=== PATIENT | male | born 1965 | race Caucasian/White ===

== ENCOUNTER → 2023-04-09 10:09 | Outpatient (CLI) | payer OTHER, SELFPAY ==
--- NOTE | ~2023-04-09 | XR_ITS ---
EXAM: XR lumbar spine min 4V DATE: 04/09/2023 10:48 HISTORY: M54.50 - Low back pain, unspecified . COMPARISON: CT abdomen pelvis 03/22/2016. FINDINGS: 5 nonrib-bearing lumbar-type vertebral bodies. Mild lumbar scoliosis. Pedicles intact. 12 mm anterolisthesis at L5-S1. Vertebral body heights preserved. Severe disc space narrowing with vacuu m phenomenon at L5-S1. Moderate facet arthropathy at L5-S1. No fracture or traumatic malalignment. Un fused spinous process tip at L5. Atherosclerotic aortic calcifications without evident aneurysm. IMPRESSION: Severe degenerative disc disease at L5-S1 with a 12 mm (grade 1 but nearing grade 2) anterolisthesis. Reviewed, dictated and finalized at location K. GER INSTRUMENTATION IMPRESSION: Severe degenerative disc disease at L5-S1 with a 12 mm (grade 1 but nearing gra de 2) anterolisthesis.
--- NOTE | ~2023-04-09 | XR_ITS ---
EXAMINATION: XR hip LT 2V w AP pelvis DATE: 04/09/2023 10:48 INDICATION: Left hip pain. TECHNIQUE: An anteroposterior view of the pelvis and 2 views of left hip were obtained. COMPARISON: None. FINDINGS: Bone alignment is normal. No fracture. There is mild lumbar spondylosis. There is mild oste oarthritis of the hips. IMPRESSION: 1. Mild osteoarthritis of the hips. Reviewed, dictated and finalized at location E. E ARTIST
== END ==
PROVIDERS: PCP Physician Assistant; Visit Provider Physician Assistant
DX: M51.37 Other intervertebral disc degeneration, lumbosacral region (principal); M16.0 Bilateral primary osteoarthritis of hip
CPT/HCPCS: 72110; 73502

== ENCOUNTER 2023-06-20 12:35 | Outpatient (CLI) | payer OTHER, SELFPAY ==
--- NOTE | ~2023-06-20 | XR_ITS ---
EXAMINATION: XR ribs LT 2V INDICATION: Left chest pain TECHNIQUE: 3 views of the left ribs were obtained. COMPARISON: 04/25/2013 FINDINGS: No displaced rib fracture is identified. The left lung is clear. No pleural effusion or pne umothorax identified. IMPRESSION: 1. No acute cardiopulmonary abnormality or evidence of displaced rib fracture. Reviewed, dictated and finalized at location B. 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
== END 2023-06-20 12:36 ==
LOC: MICIMG 12:38
PROVIDERS: PCP Physician Assistant; Visit Provider Physician Assistant
DX: R07.81 Pleurodynia (principal)
CPT/HCPCS: 71100

== ENCOUNTER 2023-10-29 14:54 | Outpatient (CLI) | payer OTHER, SELFPAY ==
--- NOTE | ~2023-10-29 | XR_ITS ---
XR cervical spine 4-5V Ordering provider: Ivonne Santana, PAC History: . M54.2 - Cervicalgia . Comparison: None. FINDINGS: VERTEBRAL BODIES: Normal height and alignment. No visible fracture or subluxation. The dens is intact . DISK SPACES: Narrowing of the disc C3-C4, C5-C6 and C6-C7. Uncovertebral joint osteoarthritic changes at the same levels. Narrowing of the foramina at the level of C5-C6, C6-C7 and C7-T1 bilaterally. PARASPINOUS SOFT TISSUES: No prevertebral soft tissue swelling. IMPRESSION: No acute osseous abnormality cervical spine. Multilevel degenerative disc disease. Reviewed, dictated and finalized at location A.
== END 2023-10-29 14:55 ==
LOC: MICIMG 14:55
PROVIDERS: PCP Family Medicine; Visit Provider Physician Assistant
DX: M50.30 Other cervical disc degeneration, unspecified cervical region (principal)
CPT/HCPCS: 72050

== ENCOUNTER 2023-11-06 15:47 | Outpatient (CLI) | payer OTHER, SELFPAY ==
--- NOTE | ~2023-11-06 | CT_ITS ---
EXAMINATION: CT brain wo con DATE: 11/06/2023 16:06 INDICATION: Headache. Dizziness. TECHNIQUE: Computed tomography (CT) of the head was performed without intravenous contrast. The mA wa s adjusted according to patient size. Iterative reconstruction technique was employed. Exam dose: 59 9.57 mGy-cm total exam DLP. COMPARISON: 04/26/2013 MRI brain/brainstem, reported normal 04/25/2013 CT brain, reported negative FINDINGS: Bilateral carotid siphon internal carotid artery calcifications and mild bilateral vertebra l artery calcifications are noted. No intracranial mass lesion or hemorrhage or cerebrovascular accident, midline shift or mass effect i s detected. Normal ventricular size. No subdural or epidural hematoma is detected. The mastoid air cells and paranasal sinuses are well-developed and aerated. No fracture or bone destruction of the cranial vault. IMPRESSION: Cerebral atherosclerosis No other significant intracranial abnormality Reviewed, dictated and finalized at Location A. Reviewed, dictated and finalized at location J.
== END 2023-11-06 15:48 ==
PROVIDERS: PCP Family Medicine; Visit Provider Physician Assistant
DX: R51.9 Headache, unspecified (principal); I67.2 Cerebral atherosclerosis
CPT/HCPCS: 70450

== ENCOUNTER 2024-03-04 16:10 | Outpatient (CLI) | payer OTHER, SELFPAY ==
--- NOTE | ~2024-03-04 | MR_ITS ---
EXAMINATION: MR lumbar spine wo con DATE: 03/04/2024 16:36 INDICATION: Lumbar radiculopathy with chronic low back pain and bilateral hip pain, right greater mallory n left. TECHNIQUE: Magnetic resonance imaging (MRI) of the lumbar spine was performed without intravenous con trast. Sequences included sagittal T2-weighted FSE, sagittal T2-weighted FS FSE, sagittal T1-weighted FSE, and axial T2-weighted FSE. COMPARISON: None FINDINGS: Chronic L5 spondylolysis with bilateral pars interarticularis defects and 7 mm anterolisthesis L5 on S1. 10 degrees lumbar levoscoliosis. Mild likely physiologic anterior wedging at T12 and L1. Remainin g vertebral body heights are normal. Severe disc height loss with associated fibrofatty and fibrovasc ular degenerative endplate changes at L5-S1. Marrow signal is otherwise unremarkable. Remaining disc heights are normal. The conus medullaris terminates at L2. There is normal signal in the caudal spina l cord. Paravertebral soft tissues are unremarkable. The following disc levels are specifically discu ssed: T12-L1: Minimal central disc protrusion. There is mild bilateral facet joint osteoarthritis. There is no neural foraminal stenosis. There is no central canal stenosis. L1-L2: Minimal central disc protrusion. There is mild bilateral facet joint osteoarthritis. There is no neural foraminal stenosis. There is no central canal stenosis. L2-L3: Disc is mildly bulging. There is mild bilateral facet joint osteoarthritis. There is mild bila teral neural foraminal stenosis. There is minimal central canal stenosis. L3-L4: Disc is moderate bulging. There is mild bilateral facet joint osteoarthritis. There is mild bi lateral neural foraminal stenosis. There is minimal central canal stenosis. L4-L5: Mild right foraminal zone disc protrusion and minimal left paracentral disc protrusion. There is moderate bilateral facet joint osteoarthritis. There is old right and minimal left neural foramina l stenosis. There is no central canal stenosis. L5-S1: Annular fissure and broad-based disc extrusion extending from foraminal zone to foraminal zone with disc material extending up to 8 mm cephalad to the level of the inferior endplate of L5. There is moderate bilateral facet joint osteoarthritis. There is moderate right and moderate to severe left neural foraminal stenosis. There is no central canal stenosis. IMPRESSION: 1. L5 spondylolysis with bilateral pars intra-articular is defects and 8 mm anterolisthesis on S1. 2. Severe spondylosis at L5-S1 most notable for moderate right-sided and moderate to severe left-side d neural foraminal stenosis. Minimal to mild spondylosis in the more cephalad lumbar spine. Reviewed, dictated and finalized at location B. SELING PSYCHOLOGIST IMPRESSION: 1. L5 spondylolysis with bilateral pars intra-articular is defects and 8 mm ant erolisthesis on S1. 2. Severe spondylosis at L5-S1 most notable for moderate right-sided and modera te to severe left-sided neural foraminal stenosis. Minimal to mild spondylosis in the more cephalad lumbar spine.
== END 2024-03-04 16:11 | disposition home or self-care (01) ==
PROVIDERS: PCP Orthopaedic Surgery; Visit Provider Orthopaedic Surgery
DX: M47.817 Spondylosis without myelopathy or radiculopathy, lumbosacral region (principal); M89.78 Major osseous defect, other site; M43.18 Spondylolisthesis, sacral and sacrococcygeal region; M47.818 Spondylosis without myelopathy or radiculopathy, sacral and sacrococcygeal region
CPT/HCPCS: 72148

== ENCOUNTER 2024-05-05 10:48 | Outpatient (CLI) | payer OTHER, SELFPAY ==
--- NOTE | ~2024-05-05 | US_ITS ---
Abdominal Sonogram: Real-time sonographic imaging of the abdomen was performed. Clinical History: Abdominal pain Findings: The liver appears normal with no evidence of mass lesion or bile duct dilatation. Main por willis vein demonstrates normal direction of flow. The spleen is normal in size without evidence of foca l lesion. The gallbladder is well distended, and appears normal with no evidence of gallstone or wal l thickening. The common bile duct measures 5 mm. The visualized pancreas, aorta, and IVC are unrema rkable. The right kidney measures 13.3 cm in length and the left kidney measures 13.3 cm. There is no hydronephrosis or renal calculus. Left renal cyst noted. Impression: No significant abnormality. Reviewed, dictated and finalized at location . TING MACHINE OPERATOR Impression: No significant abnormality.
== END 2024-05-05 10:49 | disposition home or self-care (01) ==
LOC: MICIMG 10:54
PROVIDERS: PCP Family Medicine; Visit Provider Family Medicine
DX: R10.84 Generalized abdominal pain (principal)
CPT/HCPCS: 76700

== ENCOUNTER 2024-12-15 08:33 | Day surgery (SDC) | payer OTHER, SELFPAY ==
[2024-12-03 09:40] VITALS: BMI 43.9
--- OUTSIDE RECORDS SUMMARY | 2024-12-15 08:54 | XMS_ITS | Patient Health Record ---
Author Organization [facility] Address [address] [place], [place] [id number] Care Team Providers Care Latin Teacher Name Role Phone CED LLANOS Unavailable [phone] Ced Fonseca Unavailable Unavailable Reason For Referral No Information Medications Medication SIG (Take, Route, Frequency, Duration) Notes Start Date End Date Status amlodipine 10 MG Oral Tablet ORAL amlodipine 10 MG Oral TabletOriginal Medicationamlodipine 10 MG Oral Tablet *Reorder from [employer] for eRx and Interaction Alerts* 07/15/2016 Active aspirin 81 MG Delayed Release Oral Tablet ORAL aspirin 81 MG Delayed Release Oral TabletOriginal Medicationaspirin 81 MG Delayed Release Oral Tablet *Reorder from [employer] for eRx and Interaction Alerts* 07/15/2016 Active Famotidine 10 MG Oral Tablet ORAL famotidine 10 MG Oral TabletOriginal Medicationfamotidine 10 MG Oral Tablet *Reorder from [employer] for eRx and Interaction Alerts* 07/15/2016 Active Losartan Potassium 100 MG Oral Tablet ORAL losartan potassium 100 MG Oral TabletOriginal Medicationlosartan potassium 100 MG Oral Tablet *Reorder from [employer] for eRx and Interaction Alerts* 07/15/2016 Active Plan Of Treatment No Information Insurance Providers Payer Name Payer Address Payer Phone Subscriber Number Group Number Insured Name Patient Relationship to Insured Coverage Start Date Coverage End Date [facility] [address] [address] [place] [address] [id number] JESUS WALSH Self - patient is the insured
--- OUTSIDE RECORDS SUMMARY | 2024-12-15 08:54 | XMS_ITS | Clinical Summary ---
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 Gender Identity Not on file Sexual Orientation Not on file Plan of Treatment Health Maintenance Due Date Last Done Comments Hepatitis C Virus (HCV) Screening 1965 TdaP Immunization 1965 Hepatitis B Immunization (1 of 3 - 19+ 3-dose series) 1985 Cologuard 2011 Colonoscopy 2011 Colorectal Cancer Screening 2011 Immunochemical Fecal Occult Blood 2011 Pneumococcal Immunization (5 0+ years) (1 of 1 - PCV) 2016 Zoster Immunization (1 of 2) 2016 SARS-COV-2 Immunization ( - season) 2023 Influenza Immunization (#1) 2024 Respiratory Syncytial Virus (RSV) Immunization (Adult) (1 - 1-dose 75+ series) 2041 Human Papillomavirus (HPV) Immunization Aged Out No longer eligible b ased on patient's age to complete this topic Meningococcal Immunization (ACWY) Aged Out No longer eligible based on patient's age to complete this topic Rotavirus Immunization Aged Out No lo nger eligible based on patient's age to complete this topic
[2024-12-15 08:55] VITALS: BP 139/69; PULSE 58; RESP 16; TEMP 36.7; O2SAT 97; BMI 43.4
[2024-12-15] MEDS: LACTATED RINGERS 1,000 ML 150 ML IV CONT (09:16)
[2024-12-15] MEDS: SIMETHICONE ORAL SUSPENSION 20 MG/0.3 ML 30 ML BOTTLE 1.8 ML PO (09:17)
--- NOTE | 2024-12-15 10:11 | PM.IMHP ---
H&P: HPI History of Present Illness Date/Time: 12/15/24 10:11 Chief Complaint: GERD Narrative: the patient suffers from longstanding heartburn and occasional regurgitation. He denies dysphagia, hematemesis or melena. He never had an EGD and is referred for it today. Review of Systems Review of Systems: All systems reviewed & are unremarkable except as noted in HPI and below PMFSH Past Medical History Medical History Spondylolisthesis at L5-S1 level Generalized anxiety disorder Benign prostatic hyperplasia with lower urinary tract symptoms Obstructive sleep apnea Degenerative disc disease GERD (gastroesophageal reflux disease) Tinnitus HTN (hypertension) Surgical History Surgical History History of sinus surgery 02/04/2023 Family History Family History Father Acute myocardial infarction Diabetes mellitus Heart disease Congestive heart failure Mother Colon cancer Social History Social History Smoking status: Never smoker Alcohol intake: current Alcohol use details: rarely Substance use: never Substance use type: does not use Do You Feel Safe in your Home?: Yes Lack of Transportation: No Lack of Food: Never True Current Housing: I Have Housing Concerned About Future Housing: No Difficulty Paying Gas/Electric Bills: No Difficulty Paying for Meds: No Currently Unemployed: No Education: Master's Degree or Higher Difficulty w/ Childcare or Family Care: No Living arrangements: alone Occupation/Education: occupation Gender identity (if verbalized by the patient): Male Sexual Orientation (if Verbalized by the Patient): Straight or Heterosexual Spiritual care concerns: No Meds Home Medications and Allergies Home Medications ?Medication ?Instructions ?Recorded ?Confirmed ?Type tamsulosin 0.4 mg capsule 0.4 mg PO DAILY 03/02/24 12/15/24 History irbesartan 300 1 tablet PO DAILY #90 tabs 08/17/24 12/15/24 Rx mg-hydrochlorothiazide 12.5 mg tablet diltiazem HCl 180 mg See Rx Instructions .Route 10/13/24 12/15/24 Rx capsule,extended release 24 hr, .COMPLEX #90 caps controlled (DILT-XR) escitalopram oxalate 10 mg tablet 10 mg PO DAILY #90 tabs 11/19/24 12/15/24 Rx aspirin 325 mg tablet 325 mg PO EVERY OTHER DAY 12/03/24 12/15/24 History cetirizine 10 mg capsule (All Day 10 mg PO DAILY PRN allergic 12/03/24 12/03/24 History Allergy (cetirizine)) symptoms cholecalciferol (vitamin D3) 125 125 mcg PO DAILY 12/03/24 12/15/24 History mcg (5,000 unit) tablet (Vitamin D3) magnesium 200 mg tablet 200 mg PO DAILY 12/03/24 12/15/24 History ildbbmji-mhk-hzidx acid 200 1 tablet PO DAILY 12/03/24 12/15/24 History mcg-vit K1 60 mcg-lycopene 600 mcg tablet (Men's Multivitamin) vitamin K2 180 mcg capsule 180 mcg PO DAILY 12/03/24 12/15/24 History Allergies Allergy/AdvReac Type Severity Reaction Status Date / Time No Known Allergies Allergy Verified 12/15/24 09:00 Vital Signs Vital Signs - 24 hr 12/15/24 08:55 Temperature 98.1 F Pulse Rate 58 L Respiratory Rate 16 Blood Pressure 139/69 Pulse Oximetry 97 Oxygen Delivery Room Air Exam Const: General: cooperative and healthy appearing Resp: Effort & Inspection: normal respiratory effort and able to speak in complete sentences Auscultation: clear to auscultation bilaterally Cardio: Rate: regular rate Rhythm: regular rhythm GI: Inspection: normal to inspection GI Palp: No No hepatosplenomegaly present Auscultation: normal bowel sounds Rectal Exam: deferred Skin: General skin exam: normal color Psych: Appearance: grossly normal Mental Status: mental status grossly normal Assessment and Plan Assessment and plan (1) GERD (gastroesophageal reflux disease): Code(s): K21.9 - Gastro-esophageal reflux disease without esophagitis Status: Acute Assessment and Plan: The patient is deemed a good candidate for the procedure. Consent signed. Will proceed.
--- NOTE | 2024-12-15 10:31 | S_PTH ---
PATIENT: Arturo Chinchilla LOC: [facility] U#:[id number] AGE/SX: 59/M ROOM: RE12/15/[address]: Saúl Chávez MD : 1965 BED: DIS: 12/15/2024 SPEC #: [id number] RECD: 12/15/24 10:51 STATUS: GERRY REJasiel #: [id number] MAX: 12/15/24 10:[address]: Saúl Chávez DEPT: [facility] Surgical RECD BY: Duong Beth ENTERED: 12/15/24 10:52 SP TYPE: Surgical OTHR DR: Sid Fonseca MD Tissues: A - Gastric Biopsy B - Gastric Biopsy Procedures: Hematoxylin and Eosin Stain Gross and Microscopic Level 4
[2024-12-15 10:38] VITALS: BP 107/58; PULSE 54; RESP 18; O2SAT 97
[2024-12-15 10:48] VITALS: BP 94/46; PULSE 53; RESP 19; O2SAT 96
[2024-12-15 10:58] VITALS: BP 110/64; PULSE 53; RESP 14; O2SAT 95
--- NOTE | 2024-12-15 10:59 | SUR.PHASEII ---
Patient discharged via [facility]
== END 2024-12-15 10:59 | disposition home or self-care (01) ==
PROVIDERS: PCP Family Medicine; Referring Provider Family Medicine; Visit Provider Internal Medicine Gastroenterology
PROC: 0DJ08ZZ Inspection of Upper Intestinal Tract, Via Natural or Artificial Opening Endoscopic (ICD-10-PCS; CPT 43239; principal; 2024-12-15 10:30)
DX: K21.9 Gastro-esophageal reflux disease without esophagitis (principal); K29.30 Chronic superficial gastritis without bleeding
CPT/HCPCS: 43239; 88305; J2003; J2704; J7120